=== PATIENT | female | born 1960 | race Caucasian/White ===

== ENCOUNTER 2019-06-28 11:20 | Day surgery (SDC) | payer BC ==
[~2019-06-28 11:20] MED LIST: Acetaminophen TAB* 325 MG PO ONE; Buffered Lidocaine 1% SYRIN* 1 ML/SYRINGE INTRADERM ONE; HYDROmorphone INJ1* 1 MG/ML SYRINGE IV PRN; Lactated Ringers 1000 ML Bag* 1,000 ML IV SCH; Naloxone* 0.4 MG/ML 1 ML VIAL IV PRN; PROCHLORPERAZINE INJ 5 MG/ML 2 ML VIAL IV PRN; diPHENhydraMINE IV* 50 MG/ML 1 ml VIAL (BENADRYL) IV PRN; oxyCODONE TAB* 5 MG TAB PO PRN
[2019-06-28] MEDS ORDERED: Acetaminophen TAB* 325 MG ONE (11:44)
[2019-06-28] MEDS ORDERED: Buffered Lidocaine 1% SYRIN* 1 ML/SYRINGE INTRADERM ONE (11:44)
[2019-06-28 12:21] LABS: ABS Basophils 0.1 10^3/ul (0-0.2); ABS Eosinophils 0.2 10^3/ul (0-0.6); ABS Lymphocytes 1.8 10^3/ul (1.0-4.8); ABS Monocytes 0.7 10^3/ul (0-0.8); ABS Neutrophils 5.2 10^3/ul (1.5-7.7); Eosinophil % 2.3 %; Hematocrit 43 % (35-47); Hemoglobin 14.7 g/dL (12.0-16.0); Lymphocyte % 22.3 %; Mean Corpuscular HGB Conc 34 g/dL (31-36); Mean Corpuscular Hemoglobin 30 pg (27-31); Mean Corpuscular Volume 88 fL (80-97); Mean Platelet Volume 9.8 fL (7.4-10.4); Nucleated Red Blood Cells % 0.1; Platelet Count 253 10^3/uL (150-450); Red Blood Count 4.92 10^6 /uL (3.70-4.87); Red Cell Distribution Width 14 % (10-15); White Blood Count 7.9 10^3/uL (3.5-10.8)
[2019-06-28] MEDS ORDERED: Midazolam* 1 MG/ML 2 ML VIAL (2 MG) ONE (13:43)
[2019-06-28] MEDS ORDERED: Propofol* 500 MG/50 ML BTL ONE (13:44)
[2019-06-28] MEDS ORDERED: Lidocaine 2% PF * 5 ML VIAL ONE (13:44)
[2019-06-28] MEDS ORDERED: Lidocaine 1% w EPI 1:100,000* MDV 20 ML VIAL ONE (14:21)
[2019-06-28] MEDS ORDERED: fentaNYL* 50 MCG/ML 2 ML VIAL (100 MCG VIAL) ONE (14:21)
[2019-06-28] MEDS ORDERED: Silver Nitrate/Potassium Nitr* 1 PAK (1 PAK PER PATIENT) ONE (14:21)
[2019-06-28] MEDS ORDERED: Ketorolac INJ* 30 MG/ML 1 ML VIAL ONE (14:52)
[2019-06-28] MEDS ORDERED: Metoprolol Tartrate IV* 1 MG/ML 5 ML VIAL ONE (14:52)
[2019-06-28 16:34] VITALS: BP 152/99
--- NOTE | 2019-06-29 19:14 | OP ---
DATE OF OPERATION: 06/28/19 - [facility] DATE OF : 56 SURGEON: Jaky Soto MD STRAIGHTEDGE MAN: None. ANESTHESIA: MAC. PRE-OP DIAGNOSES: Submucosal fibroid, thickened endometrium in a postmenopausal woman. POST-OP DIAGNOSES: Submucosal fibroid, thickened endometrium in a postmenopausal woman. OPERATIVE PROCEDURE: D and C, hysteroscopy, myomectomy with MyoSure. ESTIMATED BLOOD LOSS: Minimal. FLUIDS: Crystalloid. DRAINS: 600 cc of clear urine. COMPLICATIONS: None. FINDINGS: Upon entrance into the uterine cavity, there was slight protrusion of the anterior uterine wall into the cavity; however, it was not an obvious fibroid. Otherwise, the cavity appeared normal. DESCRIPTION OF PROCEDURE: After informed consent was signed, the patient was taken to the operating room where she was given monitored anesthesia care that was found to be adequate for the extent of the procedure. She was prepped and draped in the dorsal lithotomy position in the [facility]. Two speculums were placed into her vagina to expose the cervix and the anterior lip of the cervix was grasped with a single-tooth tenaculum. The cervix was easily dilated until the MyoSure hysteroscope could be inserted. Visualization of the abdominal cavity revealed the previously noted findings. The MyoSure device was assembled and used to remove the uterine mass until it was flush with the anterior abdominal wall. There was minimal bleeding during the procedure and minimal amount of fluid loss. At the conclusion of the procedure, the patient was awakened from anesthesia, moved to the stretcher and taken to the recovery room in stable condition. [id number] #: [id number] [facility] SHOREFan
== END 2019-06-28 16:33 | disposition home or self-care (01) ==
LOC: OR 11:20
PROVIDERS: ATTEND Obstetrics & Gynecology
DX: D25.0 Submucous leiomyoma of uterus (principal); N84.0 Polyp of corpus uteri; N39.3 Stress incontinence (female) (male)
CPT/HCPCS: 36415; 85025; 86850; 86900; 86901; 88305; A9270-GY; J1885; J2250; J2704; J3010; J3490